=== PATIENT | female | born 1985 ===

== ENCOUNTER 2017-09-16 14:17 | Emergency (ER) | payer SELFPAY ==
[2017-09-16 14:40] VITALS: BP 121/83; PULSE 77; RESP 16; TEMP 98.2; O2SAT 99
--- NOTE | 2017-09-16 15:02 | C.PDOC ---
History Of Present Illness 32 y/o female presenting to emergency department for medical evaluation. Patient reports that last night she inserted a tampon and this morning she was unable to remove it. Denies abdominal pain, nausea, vomiting. Time Seen by Provider: 09/16/17 14:47 Chief Complaint (Nursing): Female Genitourinary History Per: Patient History/Exam Limitations: no limitations Onset/Duration Of Symptoms: Hrs Current Symptoms Are (Timing): Still Present Associated Symptoms: denies: Nausea, Vomiting Alleviating Factors: None Abnormal Vaginal Bleeding: No Past Medical History Reviewed: Historical Data, Nursing Documentation, Vital Signs Vital Signs: Last Vital Signs Temp 98.2 F 09/16/17 14:35 Pulse 77 09/16/17 14:35 Resp 16 09/16/17 14:35 BP 121/83 09/16/17 14:35 Pulse Ox 99 09/16/17 15:11 - Medical History PMH: No Chronic Diseases Family History: States: Unknown Family Hx - Social History Hx Alcohol Use: Yes Hx Substance Use: No - Immunization History Hx Tetanus Toxoid Vaccination: No Hx Influenza Vaccination: No Hx Pneumococcal Vaccination: No Review Of Systems Gastrointestinal: Negative for: Nausea, Vomiting, Abdominal Pain Genitourinary: Positive for: Other (tampon in vaginal canal) Physical Exam - Physical Exam Appears: Well, Non-toxic, No Acute Distress Skin: Normal Color, Warm, Dry, No Rash Gastrointestinal/Abdominal: Bowel Sounds, Soft, No Tenderness, No Distention, No Guarding, No Rebound Pelvic: Normal External Exam, Vaginal Discharge (scant bloody discharge), No Cervical Motion Tenderness, No Adnexal Tenderness, Other (foreign body in vaginal canal consistent with tampon) Extremity: Normal ROM Neurological/Psych: Oriented x3, Normal Speech ED Course And Treatment O2 Sat by Pulse Oximetry: 99 (RA) Pulse Ox Interpretation: Normal Progress Note: On re-eval, pt is afebrile, hemodynamicaly stable. Non-toxic. Abd: benign. Pelvic: vaginal FB tampon was removed w/ assistance of forceps, removed without difficulty. No cervical motion tenderness on re-eval. After tampon removed noted very strong odor. No significan discharges. No vaginal edema or erythema. Back: (-) CVA tenderness. Pt advised and ref. to f/u with TUBE OPERATOR in 2-3 days for re-eavl. return to ED if anyw orsening or new changes. Medical Decision Making Medical Decision Makin Initial Impression 32 y/o female presenting with foreign body in vaginal canal Initial Plan: * Cipro 500mg PO * Upreg * Reevaluation Disposition Counseled Patient/Family Regarding: Diagnosis, Need For Followup, Rx Given - [facility]position [facility] Disposition: HOME/ ROUTINE Disposition Time: 15:00 Condition: STABLE Additional Instructions: AVID USE OF TAMPON IN FUTURE TAKE MEDICATION PRESCRIBED FOLLOW UP WITH TUBE OPERATOR IN 2-3 DAYS FOR RE-EVALUATION NEED RETURN TO ED IF ANY WORSENING OR NEW CHANGES. Prescriptions: Ciprofloxacin [Cipro] 1 tab PO BID #6 tab Instructions: Vaginal Foreign Body (ED) Forms: [employer] ([employer]) - Clinical Impression Clinical Impression: Vaginal foreign body - Scribe Statement The provider has reviewed the documentation as recorded by the Scribyulisa Franklin All medical record entries made by the Scribe were at my direction and personally dictated by me. I have reviewed the chart and agree that the record accurately reflects my personal performance of the history, physical exam, medical decision making, and the department course for this patient. I have also personally directed, reviewed, and agree with the discharge instructions and disposition.
== END 2017-09-16 15:18 | disposition home or self-care (01) ==
LOC: C.ER 14:17
DX: T19.2XXA Foreign body in vulva and vagina, initial encounter (principal); X58.XXXA Exposure to other specified factors, initial encounter; Y92.9 Unspecified place or not applicable